=== PATIENT | female | born 1960 | race Caucasian/White ===

== ENCOUNTER 2018-07-18 06:43 | Emergency (ER) | payer OTHER ==
[~2018-07-18] VITALS: Ht 157.5 cm; Wt 47.6 kg
[2018-07-18 06:43] VITALS: BP_SYST 155
--- NOTE | 2018-07-18 06:44 | NUR ---
Placed in room 1 . Placed on monitor tech, blood pressure machine and pulse oximeter. To gown for exam. Side rails up.
[2018-07-18] MEDS ORDERED: NACL 0.9% 1,000 ML IV ONE (06:46)
--- NOTE | 2018-07-18 06:49 | NUR ---
Pt c/o of "throbbing chest, numbness and tingling to hands and feet." Pt also complains of back spasms for the last month. Pt goes to chiropractor to get accupuncture for the spasms with minimal relief. Pt denies shortness of breath, N/V. Per patient, her blood pressure ranges from 75 systolic to 170 systolic and her "body temperature fluctuates widely." No other injuries/complaints per patient or noted.
[2018-07-18] MEDS ORDERED: ASPIRIN 81 MG TAB.CHEW PO ONE (07:00)
--- NOTE | 2018-07-18 07:00 | NUR ---
ER Dr. Cosby at bedside examining patient.
--- NOTE | 2018-07-18 07:02 | NUR ---
X-ray at bedside.
[2018-07-18 07:16] LABS: BASOPHILS # (AUTO) 0.1 K/uL (0.0-0.2); BASOPHILS % (AUTO) 1.2 % (0.0-2.0); EOSINOPHILS # (AUTO) 0.1 K/uL (0.0-0.4); EOSINOPHILS % (AUTO) 1.7 % (0.0-4.0); HEMATOCRIT 39.2 % (36-48); LYMPHOCYTES # (AUTO) 2.9 K/uL (1.0-5.5); LYMPHOCYTES % (AUTO) 41.9 % (20.5-51.5); MEAN CORPUSCULAR HEMOGLOBIN 31 pg (27-31); MEAN CORPUSCULAR HGB CONC 33 % (32-36); MEAN CORPUSCULAR VOLUME 93 fL (79.0-98.0); MONOCYTES # (AUTO) 0.5 K/uL (0.0-1.0); MONOCYTES % (AUTO) 7.8 % (1.7-9.3); NEUTROPHILS # (AUTO) 3.3 K/uL (1.8-7.7); NEUTROPHILS % (AUTO) 47.4 % (40.0-70.0); PLATELET COUNT (AUTO) 274 K/uL (130-430); RED CELL DISTRIBUTION WIDTH 12.9 % (9.0-15.0); WHITE BLOOD COUNT (AUTO) 6.9 K/uL (4.8-10.8)
[2018-07-18] MEDS ORDERED: METR500T PO (07:18)
[2018-07-18 07:26] LABS: ANION GAP 8 (5-15); CALCIUM 9.9 mg/dL (8.4-11.0); CHLORIDE 105 mmol/L (98-107); CREATININE 0.78 mg/dL (0.55-1.30); GLUCOSE 95 mg/dL (70-99); POTASSIUM 3.5 mmol/L (3.5-5.1); SODIUM SERUM 142 mmol/L (136-145); UREA NITROGEN, BLOOD 18 mg/dL (8-21)
[2018-07-18 07:27] LABS: GFR AFRICAN AMERICAN 97 mL/min (>90)
--- NOTE | 2018-07-18 07:30 | NUR ---
Pt received from night RN. Pt resting in bed with no complaints of distress or active pain. Pt is observed reading a book. Will continue to monitor.
[2018-07-18 07:31] LABS: INR 0.9 (0.8-1.2); PROTHROMBIN TIME 9.6 SECS (9.5-12.5)
[2018-07-18 07:40] LABS: ALANINE AMINOTRANSFERASE 186 U/L (12-78); ALBUMIN 4.1 g/dL (3.4-4.8); ASPARTATE AMINOTRANSFERASE 92 U/L (10-37); THYROID STIMULATING HORMONE 3.45 uIu/mL (0.36-3.74); TOTAL BILIRUBIN 0.5 mg/dL (0.0-1.0)
[2018-07-18 08:41] VITALS: BP_SYST 102
--- NOTE | 2018-07-18 08:41 | NUR ---
Patient given written and verbal discharge instructions and verbalizes understanding. ER MD discussed with patient the results and treatment provided. Patient in stable condition. ID arm band removed. IV catheter removed intact and dressing applied, no active bleeding. Rx of nitroglycerin given. Patient educated on pain management and to follow up with PMD. Pain Scale 0/10. Opportunity for questions provided and answered. Medication side effect fact sheet provided.
== END 2018-07-18 08:41 | disposition home or self-care (01) ==
LOC: SED 06:43
DX: G89.29 Other chronic pain (principal); R07.89 Other chest pain; M62.830 Muscle spasm of back; Z88.2 Allergy status to sulfonamides; Z88.8 Allergy status to other drugs, medicaments and biological substances; Z91.040 Latex allergy status; Z91.018 Allergy to other foods
CPT/HCPCS: 36415; 71045; 80053; 84443; 84484; 85025; 85379; 85610; 85730; 93005; 99284; J7030

== ENCOUNTER 2018-07-18 09:35 | Emergency (ER) | payer OTHER ==
[~2018-07-18] VITALS: Ht 157.5 cm; Wt 47.6 kg
[2018-07-18 09:35] VITALS: BP_SYST 117
[~2018-07-18 09:35] MED LIST: METR500T PO
--- NOTE | 2018-07-18 09:38 | NUR ---
Patient reports that she left the ER, began having 10/10 chest pain for which she took 3 tabs of NTG and is still having pain. Patient is smiling and talking, no SOB or diaphoresis. Patient does not objectively appear to be in pain. Placed in room 8. Placed on missile inspector preflight, blood pressure machine and pulse oximeter. To gown for exam. Side rails up. Report given to Mj ARMENDARIZ.
[2018-07-18] MEDS ORDERED: NACL 0.9% 1,000 ML IV ONE (09:39)
--- NOTE | 2018-07-18 09:40 | NUR ---
ER Dr. PENNY at bedside examining patient.
--- NOTE | 2018-07-18 09:41 | NUR ---
PATIENT CAME IN COMPLAINING OF CHEST PAIN 01/05. PATIENT ALERT AND ORIENTED X4 TALKING AND SMILING. PATIENT STATES SHE TOOK NITRO 3 TIMES WITH NO RELIEF. PATIENT DOES TWITCH AT TIMES.
[2018-07-18] MEDS ORDERED: ASPIRIN 81 MG TAB.CHEW PO ONE (09:45)
[2018-07-18] MEDS ORDERED: CLOPIDOGREL BISULFATE 75 MG TABLET PO ONE (09:45)
--- NOTE | 2018-07-18 10:03 | NUR ---
PATIENT GETTING XRAY IN BED.
[2018-07-18 10:10] LABS: BASOPHILS % (AUTO) 0.8 % (0.0-2.0); EOSINOPHILS % (AUTO) 0.6 % (0.0-4.0); HEMATOCRIT 34.6 % (36-48); HEMOGLOBIN 11.6 g/dL (12.0-16.0); LYMPHOCYTES # (AUTO) 1.1 K/uL (1.0-5.5); LYMPHOCYTES % (AUTO) 18.6 % (20.5-51.5); MEAN CORPUSCULAR HEMOGLOBIN 31 pg (27-31); MEAN CORPUSCULAR HGB CONC 33 % (32-36); MEAN CORPUSCULAR VOLUME 93 fL (79.0-98.0); MONOCYTES # (AUTO) 0.4 K/uL (0.0-1.0); MONOCYTES % (AUTO) 7.5 % (1.7-9.3); NEUTROPHILS # (AUTO) 4.1 K/uL (1.8-7.7); NEUTROPHILS % (AUTO) 72.5 % (40.0-70.0); PLATELET COUNT (AUTO) 253 K/uL (130-430); RED BLOOD CELL COUNT(AUTO) 3.73 MIL/uL (4.2-6.2); RED CELL DISTRIBUTION WIDTH 12.8 % (9.0-15.0); WHITE BLOOD COUNT (AUTO) 5.7 K/uL (4.8-10.8)
[2018-07-18 10:26] LABS: CREATININE 0.76 mg/dL (0.55-1.30); POTASSIUM 3.7 mmol/L (3.5-5.1)
[2018-07-18 10:30] LABS: ALBUMIN 3.5 g/dL (3.4-4.8); TOTAL BILIRUBIN 0.4 mg/dL (0.0-1.0)
[2018-07-18 10:39] LABS: BILIRUBIN,URINE NEGATIVE (NEGATIVE); BLOOD, URINE NEGATIVE (NEGATIVE); CLARITY/URINE CLEAR (CLEAR); COLOR,URINE YELLOW (YELLOW); GLUCOSE,URINE NEGATIVE (NEGATIVE); KETONES,URINE NEGATIVE (NEGATIVE); LEUKOCYTE ESTERASE ,URINE 1+ (NEGATIVE); NITRITE, URINE NEGATIVE (NEGATIVE); PH,URINE 5.5 (5.0-8.0); PROTEIN URINE NEGATIVE (NEGATIVE); UROBILINOGEN,URINE 0.2 (0.2-1.0)
--- NOTE | 2018-07-18 10:45 | NUR ---
Patient was found to have left the ER to go to her car. Patient was rifling through her car and delayed returning to the ER. Patient was advised that if she leaves the ER her IV will need to be removed. Advised the patient the she needs to remain in the ER on a classroom monitor. Patient was openly hostile and expressed dissatification. Refused to behooked to the classroom monitor and went to the bathroom.
--- NOTE | 2018-07-18 10:52 | NUR ---
After returning from the bathroom patient was compliant and was hooked back up to the mirror fabrication supervisor.
[2018-07-18 11:04] LABS: BACTERIA,URINE FEW /HPF (None Seen); MUCUS,URINE 1+ /LPF (None Seen); RBC,URINE 0-3 /HPF (0-3)
--- NOTE | 2018-07-18 12:09 | NUR ---
PATIENT WALKING AROUND UNIT. TOLD PATIENT TO SAY IN BED. PATIENT WENT TO ROOM. Addendum: 07/18/18 at 1211 by THIAGO PATIENT KEEPS TAKING OF LEADS AND TUBING.
[2018-07-18] MEDS ORDERED: cefTRIAXone 1 GM IVPB PREMIX 50 ML IV ONE (12:15)
[2018-07-18 12:28] VITALS: BP_SYST 118
--- NOTE | 2018-07-18 12:28 | NUR ---
Patient does not wish to proceed with medical care recommended by . Patient given information related to possible complications, up to and including , which could occur as a result of leaving hospital at this time. Patient verbalizes understanding of risks involved leaving against medical advice. Patient has signed AMA form.
[2018-07-18] MEDS ORDERED: ACETAMINOPHEN 500 MG TABLET PO ONE (12:30)
== END 2018-07-18 12:28 | disposition left against medical advice (07) ==
LOC: SED 09:35
DX: N39.0 Urinary tract infection, site not specified (principal); R07.89 Other chest pain; M62.830 Muscle spasm of back; Z86.79 Personal history of other diseases of the circulatory system; Z88.2 Allergy status to sulfonamides; Z91.018 Allergy to other foods; Z88.8 Allergy status to other drugs, medicaments and biological substances; Z91.040 Latex allergy status
CPT/HCPCS: 36415; 71045; 80053; 81000; 82150; 82550; 83605; 83690; 83880; 84484; 85025; 85610; 85730; 87040; 87086; 93005; 99284; J7030